=== PATIENT | male | born 1975 | race Caucasian/White ===

== ENCOUNTER 2020-08-16 10:33 | Day surgery (SDC) | payer BC ==
[2020-08-12 09:02] VITALS: BMI 28.8
[~2020-08-16 10:33] MED LIST: ACETAMINOPHEN TAB 500 MG TAB PO PRN; DEXAMETHASONE SOD PHOSPHATE 4 MG/ML 1 ML VIAL IV ONE; HEPARIN SODIUM,PORCINE 5,000 UNIT/ML 1 ML VIAL SQ PRN; LACTATED RINGERS 1,000 ML IV SCH; ONDANSETRON 4 MG/2 ML VIAL IVP ONE
[2020-08-16] MEDS ORDERED: LIDOCAINE 1% (10MG/ML) FOR IV START INTRADERMA ONE (11:21)
[2020-08-16] MEDS ORDERED: PROPOFOL 10 MG/ML 20 ML VIAL IV ONE (12:08)
[2020-08-16] MEDS ORDERED: MIDAZOLAM 2 MG/2 ML VIAL ONE (12:08)
[2020-08-16] MEDS ORDERED: HYDROmorphone (PF) 1 MG/ML ONE (12:08)
[2020-08-16] MEDS ORDERED: SUCCINYLCHOLINE CHLORIDE 100 MG/5 ML SYR IV ONE (12:08)
[2020-08-16] MEDS ORDERED: PHENYLEPHRINE 10 MG/ML VIAL ONE (12:08)
[2020-08-16] MEDS ORDERED: KETOROLAC 15 MG/ML 1 ML VIAL ONE (12:08)
[2020-08-16] MEDS ORDERED: fentaNYL (PF) 50 MCG/ML 2 ML AMP ONE (12:08)
[2020-08-16] MEDS ORDERED: NEOSTIGMINE 1 MG/ML 10 ML VIAL ONE (12:08)
[2020-08-16] MEDS ORDERED: ROCURONIUM 10 MG/ML (10 ML VIAL) IV ONE (12:08)
[2020-08-16] MEDS ORDERED: GLYCOPYRROLATE 0.2 MG/ML 2 ML VIAL ONE (12:08)
[2020-08-16] MEDS ORDERED: LIDOCAINE 1% INJ 10MG/ML (20 ML MDV) ONE (12:08)
[2020-08-16] MEDS ORDERED: BUPIVACAINE (PF) 0.25% 30 ML VIAL SQ ONE ×2 (12:29→12:33)
[2020-08-16] MEDS ORDERED: LACTATED RINGERS 1,000 ML IV ONE (13:00)
[2020-08-16 13:32] VITALS: TEMP 97.8
[2020-08-16] MEDS: HYDROmorphone 0.5 MG/0.5 ML SYRINGE IVP PRN ×2 (13:49→13:54)
[2020-08-16 14:18] VITALS: RESP 20
[2020-08-16 14:45] VITALS: BP 143/86; PULSE 73
[2020-08-16] MEDS ORDERED: IBUPROFEN 600 MG TAB PO SCH (15:00)
--- NOTE | 2020-08-16 15:36 | P.GSHP ---
History of Present Illness H&P Date: 08/16/20 Chief Complaint: Incarcerated umbilical hernia Patient presents today for elective repair incarcerated umbilical hernia. This has been present for the last 2-3 years and increasing in size. Mild pain at times. This is nonreducible. No nausea or vomiting. Past Medical History Additional Past Medical History / Comment(s): umbilical hernia History of Any Multi-Drug Resistant Organisms: None Reported Additional Past Surgical History / Comment(s): wisdom teeth, plastic sx on ear Past Anesthesia/Blood Transfusion Reactions: No Reported Reaction Smoking Status: Never smoker - Past Family History Mother Family Medical History: No Reported History Medications and Allergies Home Medications Medication Instructions Recorded Confirmed Type oxyCODONE HCL [OxyIR] 5 mg PO Q6H PRN 3 Days #6 tab 08/16/20 Rx Allergies Allergy/AdvReac Type Severity Reaction Status Date / Time No Known Allergies Allergy Verified 08/12/20 08:59 Surgical - Exam Vital Signs Temp Pulse Resp BP Pulse Ox 98.9 F 98 16 156/87 99 08/16/20 10:51 08/16/20 10:51 08/16/20 10:51 08/16/20 10:51 08/16/20 10:51 Physical exam: General: Well-developed, well-nourished HEENT: Normocephalic, sclerae nonicteric Abdomen: Nontender, nondistended, incarcerated umbilical hernia Extremities: No edema Neuro: Alert and oriented Assessment and Plan (1) Incarcerated umbilical hernia Narrative/Plan: 45-year-old male with incarcerated umbilical hernia. We'll proceed with repair with mesh at this time. Risks of bleeding, infection, recurrence, bladder and bowel injury, numbness, nerve injury were discussed with the patient. The patient understands and wishes to proceed. Current Visit: Yes Status: Acute Code(s): K42.0 - UMBILICAL HERNIA WITH OBSTRUCTION, WITHOUT GANGRENE SNOMED Code(s): 773071523
--- NOTE | 2020-08-16 15:38 | P.OP ---
Date of Procedure: 08/16/20 Procedure(s) Performed: PREOPERATIVE DIAGNOSIS: Incarcerated umbilical hernia POSTOPERATIVE DIAGNOSIS: Same PROCEDURE: Umbilical herniorrhaphy with mesh SURGEON: Dione EBL: Minimal ANESTHESIA: General COMPLICATIONS: None OPERATIVE PROCEDURE: The patient was placed in the operating table in the supine position. A periumbilical incision was made using the scalpel. The subcutaneous tissues were dissected bluntly. The hernia sac was identified. The umbilical attachments to the fascia were divided using electrocautery. The hernia sac was excised. The hernia sac was sent to pathology. The size of the defect was approximately 1 cm. The preperitoneal space was dissected using electrocautery and blunt dissection. This allowed for a 4.3 cm mesh to be placed beneath the fascia. This was then sutured to the fascia using trans- fascial 0 Ethibond sutures. The defect was closed using interrupted a vest over pants mattress sutures using 0 Ethibond. The folding edge was sutured down using interrupted 0 Ethibond sutures as well.. The subcutaneous tissues were reapproximated using inverted 3-0 Vicryl sutures. The umbilicus was tacked back down to the fascia using a 3-0 Vicryl suture. The skin was closed using 4-0 Monocryl sutures. Skin glue and sterile dressings were then applied. DISPOSITION: Stable to recovery room
[2020-08-16] MEDS ORDERED: ACETAMINOPHEN TAB 325 MG TAB PO SCH (18:00)
== END 2020-08-16 15:59 | disposition home or self-care (01) ==
LOC: OR 10:33
PROVIDERS: ATTEND Surgery
DX: K42.0 Umbilical hernia with obstruction, without gangrene (principal); K21.9 Gastro-esophageal reflux disease without esophagitis; Z98.890 Other specified postprocedural states
CPT/HCPCS: 49587; C1781; J2250; J1644; J1100; J2370; J2710; J0690; J2405; J2001; J3010; J1170 ×2; J1885; J0330; J2704

== ENCOUNTER 2024-10-05 08:17 | Day surgery (SDC) | payer BC, OTHER ==
[2024-10-05] MEDS: IV FLUID CONTINUATION 1,000 ML IV ONE (08:27)
[2024-10-05 08:33] VITALS: TEMP 96.9
[2024-10-05] MEDS: LACTATED RINGERS 1,000 ML IV SCH (08:43)
[2024-10-05] MEDS ORDERED: PROPOFOL 10 MG/ML 20 ML VIAL IV ONE (11:28)
[2024-10-05] MEDS ORDERED: LIDOCAINE 1% INJ 10MG/ML (20 ML MDV) ONE (11:28)
[2024-10-05 12:25] VITALS: BP 147/78; PULSE 71; RESP 16
--- NOTE | 2024-10-06 22:48 | P.OP ---
Date of Procedure: 10/05/24 Preoperative Diagnosis: Positive Cologuard Postoperative Diagnosis: 1. Sigmoid Colon Polyp 2. Diverticulosis Procedure(s) Performed: Colonoscopy with Polypectomy Anesthesia: MAC Surgeon: Esau Branham Pathology: other (Sigmoid Colon Polyp) Condition: stable Disposition: PACU Description of Procedure: The patient was brought to the endoscopy suite and placed in the left lateral decubitus position. After induction of IV sedation, the Olympus video colonoscope was passed to the cecum without difficulty. Cecal intubation was confirmed by the identification of the appendiceal orifice, the ileocecal valve, and cecal strap by palpation. Upon withdrawing the colonoscope, all mucosal surfaces were inspected. There was no evidence of malignancy, neoplasia, or mucosal abnormalities. There was a sigmoid colon polyp. A hot snare polypectomy was performed. There was diverticulosis noted in the left colon. Retroflexion in the rectum showed no internal hemorrhoids.
== END 2024-10-05 12:39 | disposition home or self-care (01) ==
LOC: ORWHC2ENDO 08:17
PROVIDERS: ATTEND Surgery
DX: Z12.11 Encounter for screening for malignant neoplasm of colon (principal); D12.5 Benign neoplasm of sigmoid colon; K57.30 Diverticulosis of large intestine without perforation or abscess without bleeding; I49.9 Cardiac arrhythmia, unspecified; G47.33 Obstructive sleep apnea (adult) (pediatric); K21.9 Gastro-esophageal reflux disease without esophagitis
CPT/HCPCS: 88305; 45385; J2003; J2704